=== PATIENT | female | born 1965 | race Caucasian/White ===

== ENCOUNTER → 2024-02-24 10:20 | Outpatient (REF) | payer BC, SELFPAY | LOC: HWWDC 10:20 | PROVIDERS: ATTENDING PHYSICIAN Internal Medicine | DX: Z12.31 Encounter for screening mammogram for malignant neoplasm of breast (principal) | CPT/HCPCS: 77063; 77067 ==

== ENCOUNTER → 2025-04-06 08:06 | Outpatient (REF) | payer BC, SELFPAY | LOC: HWWDC 08:06 | PROVIDERS: ATTENDING PHYSICIAN Internal Medicine | DX: Z12.31 Encounter for screening mammogram for malignant neoplasm of breast (principal); M54.9 Dorsalgia, unspecified | CPT/HCPCS: 71046; 72072; 77063; 77067 ==